=== PATIENT | male | born 1950 | race Caucasian/White ===

== ENCOUNTER → 2018-02-19 | Outpatient (CLI) | payer OTHER ==
--- NOTE | ~2018-02-19 | 2DMMODE ---
[facility] [place] [address] 2 D/M-MODE ECHOCARDIOGRAM Name: VICKY BURROWS ELODIA Room #: REG [facility]#: [id number] Admission: 02/19/18 Attend Phys: Jourdan Pina MD Discharge: Date of : 46 Date of Service: 02/19/18 1049 Report #: [id number] THIS REPORT FOR: //name// APPROVED REPORT Study performed: 02/19/2018 09:48:47 EXAM: Comprehensive 2D, Doppler, and color-flow Echocardiogram Patient Location: Out-Patient Status: routine BSA: 2.20 HR: 61 bpm BP: 155/68 mmHg Rhythm: NSR Other Information Study Quality: Adequate Indications Hypertension, Pre-Op Short of breath, family history of CAD 2D Dimensions RVDd: 40.00 mm IVSd: 14.13 (7-11mm) LVOT Diam: 22.85 (18-24mm) LVDd: 45.07 mm PWd: 13.55 (7-11mm) Ascending Ao: 29.76 (22-36mm) LVDs: 25.33 (25-40mm) Aortic Root: 33.02 mm Volumes Left Atrial Volume (Systole) Single Plane 4CH: 55.70 mL Single Plane 2CH: 58.98 mL LA ESV Index: 29.00 mL/m2 Aortic Valve AoV Peak Alverto.: 1.27 m/s AO Peak Gr.: 6.42 mmHg LVOT Max P.52 mmHg LVOT Max V: 0.94 m/s PREETI Vmax: 3.03 cm2 Mitral Valve E/A Ratio: 0.9 MV Decel. Time: 343.81 ms MV E Max Alverto.: 0.68 m/s [facility] [address] [place] [address] 2 D/M-MODE ECHOCARDIOGRAM Name: VICKY BURROWS ELODIA Room #: REG [facility]#: [id number] Admission: 02/19/18 Attend Phys: Jourdan Pina MD Discharge: Date of : 46 Date of Service: 02/19/18 1049 Report #: [id number] MV A Alverto.: 0.76 m/s MV PHT: 99.71 ms IVRT: 96.89 ms Pulmonary Valve PV Peak Alverto.: 1.27 m/s PV Peak Gr.: 6.46 mmHg Pulmonary Vein P Vein S: 0.74 m/s P Vein A: 0.29 m/s P Vein D: 0.49 m/s P Vein A Dur.: 115.3 msec P Vein S/D Ratio: 1.51 Tricuspid Valve TR Peak Alverto.: 1.85 m/s RAP Estimate: 5.00 mmHg TR Peak Gr.: 13.67 mmHg PA Pressure: 19.00 mmHg Left Ventricle The left ventricle is normal size. There is normal LV segmental wall motion. Mild concentric left ventricular hypertrophy. Left ventricular systolic function is normal. LVEF is 55-60%. Mild diastolic dysfunction is present (impaired relaxation pattern). Right Ventricle The right ventricle is normal size. The right ventricular systolic function is normal. Atria The left atrium size is normal. The right atrium size is normal. Aortic Valve The aortic valve is normal in structure. No aortic regurgitation is present. There is no aortic valvular stenosis. Mitral Valve The mitral valve is normal in structure. Mild mitral regurgitation. No evidence of mitral valve stenosis. Tricuspid Valve The tricuspid valve is normal in structure. Trace tricuspid regurgitation. Estimated PAP is 20mmHg. Pulmonic Valve The pulmonary valve is normal in structure. Trace pulmonic [address] [address] 2 D/M-MODE ECHOCARDIOGRAM Name: VICKY BURROWS ELODIA [id number] Admission: 02/19/18 Attend Phys: Jourdan Pina MD Discharge: Date of : 46 Date of Service: 02/19/18 1049 Report #: [id number] regurgitation. Great Vessels The aortic root is normal in size. The ascending aorta is normal in size. IVC is normal in size and collapses >50% with inspiration. Pericardium There is no pericardial effusion. <Conclusion> The left ventricle is normal size. Mild concentric left ventricular hypertrophy. Left ventricular systolic function is normal. Mild diastolic dysfunction is present (impaired relaxation pattern). The right ventricle is normal size. The left atrium size is normal. The aortic valve is normal in structure. Mild mitral regurgitation. Trace tricuspid regurgitation. Estimated PAP is 20mmHg. <ELECTRONICALLY SIGNED> By: Jourdan Pina MD 02/19/18 1049 1049 1049 Jourdan Pina MD /INF
== END ==
LOC: NUC 07:47
DX: Z01.818 Encounter for other preprocedural examination (principal); I34.0 Nonrheumatic mitral (valve) insufficiency; I10 Essential (primary) hypertension; R06.09 Other forms of dyspnea; E78.5 Hyperlipidemia, unspecified; Z82.49 Family history of ischemic heart disease and other diseases of the circulatory system

== ENCOUNTER → 2018-02-23 | Outpatient (CLI) | payer OTHER ==
[~2018-02-23] VITALS: Ht 182.9 cm; Wt 97.5 kg
[~2018-02-23] MED LIST: ASPIR 8181 MG PO; CLARITIN10 MG PO; FISH OIL 1,001000 M2 PO; KAPSPARGO SPRIN50 MG PO; LIPITOR 20 MG T20 M1 PO; LISINOPRIL20 MG PO; MULTIVITAMINS1 EAC7 PO; NAPROXEN250 MG PO; PREDNISOLONE1 GM PO
--- NOTE | ~2018-02-23 | EKG ---
[address] [place] [place] [address] ELECTROCARDIOGRAM REPORT Name: VICKY BURROWS ELODIA Room #: REG [facility].#: [id number] Admission: 02/23/18 Attend Phys: Jourdan Pina MD Discharge: Date of : 46 Report #: [id number] THIS REPORT FOR: //name// [facility] Test Date: 2018-02-23 Test Time: 07:51:38 Pat Name: VICKY BURROWS Department: Room: Gender: M Retail Cashier: ROWDY : 1950 Requested By: Jourdan Pina Order Number: [id number] MD: Paul Marin Measurements Intervals [place] Rate: 55 P: 48 NH: 147 QRS: 25 QRSD: 94 T: 30 QT: 428 QTc: 410 Interpretive Statements Sinus rhythm Poor R wave progression non specific st/t wave abnormalities No previous ECG available for comparison Electronically Signed On 02-23-2018 12:59:25 CHECK CLERK by Paul Marin [email or web address] <ELECTRONICALLY SIGNED> By: Paul Marin MD 02/23/18 1259 [id number] [id number] Paul Marin MD /ALISON
--- NOTE | ~2018-02-23 | CATHLAB ---
[facility] [place] [address] INVASIVE PROCEDURE REPORT Name: MARKOSVICKY ELODIA Room #: REG [facility]#: [id number] Admission: 02/23/18 Attend Phys: Jourdan Pina MD Discharge: Date of : 46 Date of Service: 02/23/18 1558 Report #: [id number] THIS REPORT FOR: //name// APPROVED REPORT Study performed: 02/23/2018 10:00:30 Patient Details Patient Status: Out-Patient Room #: The patient is a 67 year-old male Event Personnel Jourdan Pina Furniture Crater, Lelia Lombardi, SCANNING MANAGER Monitor, Vickey Esparza RN, Jesus Manuel Euceda, Luz, Cori Monitor Procedures Performed Art Access - R femoral artery* Left Heart Cath w/or w/o Coronaries [id number] [facility] [address] Initial Mod Sed Same Phys/QHP Gr5y [id number] Hemostasis with Manual pressure Indication Dyspnea, Positive stress test Risk Factors HypercholesterolemiaPhysical Activity, Hypertension Procedure Narrative The Right Groin^ was infiltrated with subcutaneous anesthesia. A PINNACLE 4FR Sheath #[id number] sheath was inserted into the RFA^. Coronary angiography was performed using coronary diagnostic catheters. The right coronary system was accessed and visualized with a JR4 catheter. The left coronary system was accessed and visualized with a JL4 catheter. The left ventricle was accessed and visualized with a PIGTAIL catheter. Left ventricular/Aortic Valve gradient assessed via catheter pullback. Left ventriculogram was performed in 30 degree projection. Hemostasis was obtained with manual pressure following sheath removal without any complications. The patient tolerated the procedure well and there were no complications associated with the procedure. There was no hematoma. Intraoperative Conscious Sedation Sedation start time: 10:29 Case end Time: 10:58 Fentanyl 50 mcg Versed 1.5 mg [facility] [place] [address] INVASIVE PROCEDURE REPORT Name: VICKY BURROWS ELODIA Room #: REG [facility]#: [id number] Admission: 02/23/18 Attend Phys: Jourdan Pina MD Discharge: Date of : 46 Date of Service: 02/23/18 1558 Report #: [id number] Fluoro Time: 1.30 minutes Dose: DAP 2567.19 cGycm2 343 mGy Contrast Type and Amount: Omnipaque 85 ml Coronary Angiography The patient's coronary anatomy is right dominant. Diagnostic Cath Left Main This is a patent vessel, with no flow-limiting lesions. LAD This is a moderate size caliber vessel, traveling down the anterior wall and wrapping around the apex. There is mild disease in the mid segment, 20%. Diagonal 1 This is a moderate size caliber vessel, with no flow-limiting lesions. Diagonal 2 This is a small to moderate size caliber vessel, with a borderline stenosis at the ostium, 50-60%. Recommend medical therapy. Circumflex This is a patent vessel, with no flow-limiting lesions. OM1 This is a patent vessel, with no flow-limiting lesions. OM2 This is a patent vessel, with no flow-limiting lesions. Right Coronary This is a dominant vessel with mild disease proximally, 30%. R PDA Patent vessel, with no flow-limiting lesions. Left Ventriculography The left ventricle is normal in size with normal contractility. The left ventricular ejection fraction is estimated to be >55%. Hemodynamics The aortic pressure is 167/81 mmHg with a mean of 87 mmHg. The left ventricular pressure is 162/7 mmHg with a mean of mmHg. The left ventricular end diastolic pressure is 24 mmHg. Conclusion 1. There is mild disease in the LAD and RCA. 2. 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 [facility] [address] [place] [address] INVASIVE PROCEDURE REPORT Name: VICKY BURROWS ELODIA Room #: REG [facility]#: [id number] Admission: 02/23/18 Attend Phys: Jourdan Pina MD Discharge: Date of : 46 Date of Service: 02/23/18 1558 Report #: [id number] 3. Normal LV systolic function. 4. Recommend risk factor management. <ELECTRONICALLY SIGNED> By: Jourdan Pina MD 02/23/18 1558 1558 1558 Jourdan Pina MD /INF
[2018-02-23 08:02] LABS: HEMATOCRIT 41.7 % (42.0-52.0); HEMOGLOBIN 14.2 gm/dL (14.0-18.0); MCH 30.5 pg (26.0-34.0); MCV 89.7 fL (80.0-100.0); RBC 4.65 mil/uL (4.50-6.00); RDW 14.2 % (10.5-14.5); WBC 11.7 thou/uL (4.0-11.0)
[2018-02-23 08:10] LABS: CALCIUM 9.4 mg/dL (8.5-10.1); POTASSIUM 3.8 mmol/L (3.5-5.1)
[2018-02-23 08:18] VITALS: BP 160/70
== END | disposition home or self-care (01) ==
LOC: CATH 07:30
PROVIDERS: Internal Medicine Cardiovascular Disease
DX: I25.10 Atherosclerotic heart disease of native coronary artery without angina pectoris (principal); I10 Essential (primary) hypertension; E78.00 Pure hypercholesterolemia, unspecified; M19.90 Unspecified osteoarthritis, unspecified site; E78.5 Hyperlipidemia, unspecified; Z85.828 Personal history of other malignant neoplasm of skin; Z82.49 Family history of ischemic heart disease and other diseases of the circulatory system; K21.9 Gastro-esophageal reflux disease without esophagitis; Z98.890 Other specified postprocedural states; Z79.899 Other long term (current) drug therapy; Z79.82 Long term (current) use of aspirin

== ENCOUNTER → 2019-06-03 | Outpatient (CLI) | payer MEDICARE | LOC: SJCVC 12:47 | DX: I25.10 Atherosclerotic heart disease of native coronary artery without angina pectoris (principal); I10 Essential (primary) hypertension; E78.00 Pure hypercholesterolemia, unspecified ==

== ENCOUNTER → 2020-02-23 | Outpatient (CLI) | payer OTHER | LOC: SJCVCIMAG 06:54 | PROVIDERS: ATTEND Internal Medicine Cardiovascular Disease | DX: I34.0 Nonrheumatic mitral (valve) insufficiency (principal); I25.10 Atherosclerotic heart disease of native coronary artery without angina pectoris; I10 Essential (primary) hypertension; E78.00 Pure hypercholesterolemia, unspecified; C43.9 Malignant melanoma of skin, unspecified; Z79.899 Other long term (current) drug therapy ==